=== PATIENT | female | born 1960 | race Caucasian/White ===

== ENCOUNTER → 2017-01-24 | Outpatient (CLI) | payer BC ==
[~2017-01-24] MED LIST: ADDERALL15 MG PO; ENDOCET 5-3251 EACH PO; HYDROCHLOROTHIA25 MG PO; MOTRIN800 MG PO; NEXIUM40 MG PO; Zocor PO; Zoloft PO
== END | disposition home or self-care (01) ==
LOC: NUC 12:32
DX: R10.11 Right upper quadrant pain (principal)
CPT/HCPCS: 78226; A9537

== ENCOUNTER → 2017-06-30 | Outpatient (CLI) | payer BC | END | disposition home or self-care (01) | LOC: CDC 10:47 | DX: Z01.810 Encounter for preprocedural cardiovascular examination (principal); M19.041 Primary osteoarthritis, right hand; M79.641 Pain in right hand; M65.4 Radial styloid tenosynovitis [de Quervain] | CPT/HCPCS: 93000 ==